=== PATIENT | male | born 2000 | race Caucasian/White ===

== ENCOUNTER 2020-05-31 12:34 | Outpatient (NON) | payer BC, SELFPAY ==
[2020-06-01 00:38] LABS: SARS-CoV-2 RNA PCR Positive
== END 2020-05-31 12:35 ==
PROVIDERS: PCP Pediatrics; Visit Provider Pediatrics
DX: U07.1 COVID-19 (principal)
CPT/HCPCS: 87635; C9803; U0003

== ENCOUNTER 2021-03-18 12:04 | Emergency (ER) | payer BC, SELFPAY ==
[2021-03-18 12:11] VITALS: BP 128/68; PULSE 67; RESP 16; TEMP 36.7; O2SAT 99
--- NOTE | 2021-03-18 12:23 | ED.GENADULT ---
HPI - General Adult General Chief complaint: Eye Problems Stated complaint: eyelid swelling Time Seen by Provider: 03/18/21 12:24 Source: patient and RN notes reviewed Mode of arrival: ambulatory Limitations: no limitations History of Present Illness HPI narrative: 20-year-old male presents with complaints of swelling, tenderness, and redness to the edge of LT eyelid for 1 day. ?Lucas reports similar symptoms to LT eye 3 weeks ago in which he applied warm compresses with relief, now symptoms returned and worse. ?No treatment this time. ?No redness to the eye. ?No drainage. ?No blurred vision, double vision, sensation of foreign body, or pain of eye with movement. No exacerbating factors. ?No relieving factors. ?Wear glasses. ?Denies fever. ?Remains active. ?The patient reports he has been diagnosed with COVID-13 June 2021. ?The patient reports he is not waiting for the results of a COVID-19 lab test. ?The patient reports he does not have chills, weakness, or fatigue. ?The patient reports he does not have a new or worsening cough or shortness of breath. ?Denies chest pain. ?The patient reports he does not have any rhinorrhea, congestion, loss of taste or smell, sore throat, nausea, vomiting, abdominal pain, and diarrhea. Tolerating po intake well. ?Denies recent traveling. ?Denies concerns for COVID-19 or exposures. ?At this time, the patient is not suspected of having COVID-19. Some parts of this dictation were generated by voice recognition software and may contain typographical and/or grammatical inaccuracies. Related Data Home Medications Medication Instructions Recorded Confirmed albuterol sulfate [ProAir HFA] 2 puff INHALATION DAILY 03/18/21 03/18/21 Allergies Allergy/AdvReac Type Severity Reaction Status Date / Time No Known Allergies Allergy Unverified 03/18/21 12:16 Review of Systems Review of Systems: Narrative: CONSTITUTIONAL: Denies fever, chills, sweats. EYES: Denies visual changes, discharge. Complaints of swelling and redness to the edge of LT eyelid. ENT: Denies rhinorrhea, congestion, sore throat, otalgia. CARDIOVASCULAR: Denies chest pain, palpitations, edema. RESPIRATORY: Denies dyspnea, wheezing, cough. GASTROINTESTINAL: Denies abdominal pain, nausea, vomiting, diarrhea. SKIN: Denies rash or itching. MUSCULOSKELETAL: Denies acute back pain, joint pain, or myalgia. NEUROLOGIC: Denies numbness or focal weakness. PSYCHIATRIC: Denies anxiety or depression. All systems reviewed & are unremarkable except as noted in HPI and below. [facility] Past Medical History Medical History COVID-19 06/15 Vapes nicotine containing substance Surgical History Surgical History (Updated 03/23/21 @ 10:14 by HARRY Forde) No significant past surgical history Family History Family History (Updated 03/23/21 @ 10:14 by HARRY Forde) Father Alive and well Mother Hypertension Social History Social History (Updated 03/23/21 @ 10:15 by HARRY Forde) Smoking status: Current every day smoker Tobacco type: e-cigarettes/vaping Second hand tobacco smoke exposure: No Alcohol intake: never Substance use: current Substance use type: marijuana Living arrangements: with family Occupation/Education: student Gender identity (if verbalized by the patient): Male Comments At time of signature, I have reviewed and agree with the nursing past medical, surgical, social, and family history. Please see the nursing chart for further information. There is no relevant family history pertinent to the presenting complaint. Exam Narrative: Exam Narrative: GENERAL: This is a well-nourished, well-developed patient, in no apparent distress. HEAD: Normocephalic, atraumatic. EYES: PERRL. Sclera clear/white to eyes. LT eye sclera clear with without drainage, no swelling, no tenderness on palpation or erythema. Vision is grossly intact. LT eye-20/20 , RT eye-20/25, Both-20/20 per Snellen
== END 2021-03-18 13:12 | disposition home or self-care (01) ==
PROVIDERS: Emergency Provider Nurse Practitioner Family; PCP Pediatrics
DX: H00.014 Hordeolum externum left upper eyelid (principal); J45.909 Unspecified asthma, uncomplicated
CPT/HCPCS: 99213; G0463